=== PATIENT | male | born 1970 | race Caucasian/White ===

== ENCOUNTER 2017-01-13 07:20 | Day surgery (SDC) | payer OTHER ==
[~2017-01-13] VITALS: Ht 170.2 cm; Wt 66.0 kg
[~2017-01-13 07:20] MED LIST: ACAR25TA2 PO; CLIN60LO2 TP; CLOB15CR3 TOP; DICY10CA56 PO; GEMF600T3 PO; KETO120S3 TP; KLO1T PO; LOSA25TA21 PO; OMEP20CA11 PO; Sodium Chloride LOK Flush 10 mL Syringe IV PRN; fentaNYL-PF 50 mCg/mL 2 mL Inj IVPUSH PRN
[2017-01-13 07:32] VITALS: BP 126/85; PULSE 85; RESP 16; O2SAT 99
[2017-01-13] MEDS ORDERED: GLPZ5T PO (07:32)
[2017-01-13] MEDS ORDERED: 0.9% Sodium Chloride 1,000 ML IV ONE (07:45)
[2017-01-13 08:29] VITALS: BP 133/83; PULSE 85; RESP 16; O2SAT 97
[2017-01-13 08:39] VITALS: BP 110/68; PULSE 86; RESP 16; O2SAT 95
--- NOTE | 2017-01-13 11:26 | ENDO ---
[address] [address] ENDOSCOPY PROCEDURE PATIENT: JOHNNY WALDEN : 1970 MR#: [id number] ADMIT: 01/13/2017 JOB ID: [id number] DATE: 01/13/2017 TYPE OF OPERATION: 1. Esophagogastroduodenoscopy with biopsy. 2. Colonoscopy with biopsy. PREOPERATIVE DIAGNOSIS(ES): Epigastric pain, GERD and diarrhea. POSTOPERATIVE DIAGNOSIS(ES): 1. Normal colonoscopy status post biopsies. 2. Normal upper endoscopy status post biopsies. ANESTHESIA: 1. Fentanyl 200 mcg. 2. Versed 10 mg IV administered. COMPLICATIONS: None. BLOOD LOSS: Minimal. DESCRIPTION OF PROCEDURE: After risks and benefits had been explained to the patient, informed consent was obtained. After anesthesia administered, upper endoscope was then inserted in the mouth and into the esophagus, stomach, second portion of duodenum. Mucosa carefully examined. After the procedure was done, the scope was withdrawn and procedure terminated. Colonoscope was then inserted from the rectum to the terminal ileum and mucosa carefully examined. Prep of the patient was excellent. After procedure was done, the scope was withdrawn and the procedure terminated. FINDINGS: Upon inspection of the esophagus, the esophagus was normal without masses, ulcers, or lesions. Z-line located 40 cm from incisors. Upon entering the stomach, the stomach was normal without masses, ulcers. Reflexion normal. Duodenal bulb, first and second portion were normal. Biopsies taken of the duodenum, antrum and body of the stomach and distal esophagus. Upon inspection of the anus, no masses, hemorrhoids, ulcers, fissures that were seen. Throughout the entire examination, no polyps, masses, lesions. Biopsies taken throughout the random colon. Retroflexion was normal. IMPRESSIONS: Normal upper endoscopy and colonoscopy status post biopsies. RECOMMENDATION: Await pathology results. Followup in GI clinic as needed.
--- NOTE | 2017-01-18 15:51 | PATH ---
SURGICAL PATHOLOGY Attending Physician:Chente Robledo MD CASE STATUS: Signed Out PATIENT NAME: JOHNNY WALDEN PID: [id number] : 1970 DATE COLLECTED:01/13/2017 16:14 SPECIMEN: 1: Duodenum, Biopsy 2: Stomach, Antrum, Biopsy 3: Gastric, Biopsy 4: Esophagus, Biopsy 5: Ileum, Biopsy 6: Colon, Biopsy CLINICAL HISTORY: 1. DUODENUM 2. GASTRIC ANTRUM 3. GASTRIC BODY 4. DISTAL ESOPHAGUS 5. TERMINAL ILEUM 6. RANDOM COLON FINAL DIAGNOSIS: 1. Duodenum, Biopsy: Poorly oriented portion of duodenal mucosa, favor benign with no diagnostic abnormality. Please see comment. 2. Gastric Antrum, Biopsy: Gastric antral mucosa with no diagnostic abnormality. No H. pylori organisms identified by H&E stain. Negative for intestinal metaplasia, dysplasia, and malignancy. 3. Gastric Body, Biopsy: Portions of gastric body-type mucosa with no diagnostic abnormality. No H. pylori organisms identified by H&E stain. Negative for intestinal metaplasia, dysplasia, and malignancy. 4. Distal Esophagus, Biopsy: Squamous mucosa with no diagnostic abnormality. Negative for intestinal metaplasia. Negative for dysplasia and malignancy. Very scant glandular elements identified for evaluation. 5. Terminal Ileum, Biopsy: Portions of small bowel mucosa with no diagnostic abnormality. Negative for dysplasia and malignancy. 6. Random Colon Biopsies: Superficial portions of colorectal mucosa with no diagnostic abnormality. Negative for active inflammation, granulomas, dysplasia, and malignancy. ICD10: K29.7 NOTE: Part 1: Sections demonstrate portions of duodenal mucosa with the appearance of a slightly altered architecture. Poor tissue orientation is favored. If clinical suspicion for neoplasm is present, please consider re-biopsy in this region. This tissue was reviewed by my gastrointestinal pathologist colleague, Dr. Kacey Jenkins, who concurs with this interpretation. GROSS DESCRIPTION: Received are six formalin-filled containers, each labeled with the patient' s name. 1. Received in formalin, labeled with the patient' s name and "duodenum", are two fragments of tovar, soft tissue ranging in size from 0.1 x 0.1 x 0.1 cm to 0.2 x 0.1 x 0.1 cm. All fragments are totally submitted in cassette 1A. 2. Received in formalin, labeled with the patient' s name and "gastric antrum", are two fragments of tovar, soft tissue ranging in size from 0.1 x 0.1 x 0.1 cm to 0.2 x 0.2 x 0.1 cm. All fragments are totally submitted in cassette 2A. 3. Received in formalin, labeled with the patient' s name and "gastric body", are two fragments of tovar, soft tissue ranging in size from 0.1 x 0.1 x 0.1 cm to 0.3 x 0.2 x 0.1 cm. All fragments are totally submitted in cassette 3A. 4. Received in formalin, labeled with the patient' s name and "distal esophagus", are two fragments of tovar, soft tissue ranging in size from 0.2 x 0.1 x 0.1 cm to 0.2 x 0.2 x 0.2 cm. All fragments are totally submitted in cassette 4A. 5. Received in formalin, labeled with the patient' s name and "terminal ileum", are two fragments of tovar, soft tissue ranging in size from 0.1 x 0.1 x 0.1 cm to 0.2 x 0.1 x 0.1 cm. All fragments are totally submitted in cassette 5A. 6. Received in formalin, labeled with the patient' s name and "random colon", are five fragments of tovar, soft tissue ranging in size from 0.1 x 0.1 x 0.1 cm to 0.2 x 0.1 x 0.1 cm. All fragments are totally submitted in cassette 6A. ([id number]) ICD-9 CODES: CPT CODES: 1: 03558 2: 01777 3: 26873 4: 21981 5: 69328 6: 48700 Electronically Signed Out Rylee Zayas MD [facility] Pathology [facility] [employer], [place] [address] Technical component performed at [facility], [facility] [address], [address]
== END 2017-01-13 23:59 | disposition home or self-care (01) ==
LOC: END 07:20
PROVIDERS: ATTEND Internal Medicine Gastroenterology
DX: R19.7 Diarrhea, unspecified (principal); R10.13 Epigastric pain; R10.11 Right upper quadrant pain; K21.9 Gastro-esophageal reflux disease without esophagitis; E11.9 Type 2 diabetes mellitus without complications; E78.5 Hyperlipidemia, unspecified; I10 Essential (primary) hypertension
CPT/HCPCS: 43239; 45380; G0500; J7030